=== PATIENT | female | born 1970 | race African-American/Black ===

== ENCOUNTER → 2025-03-15 | Outpatient (CLI) | payer BC | END | disposition home or self-care (01) | LOC: MAMMO 07:17 | PROVIDERS: ATTEND Internal Medicine | DX: Z12.31 Encounter for screening mammogram for malignant neoplasm of breast (principal); R92.333 Mammographic heterogeneous density, bilateral breasts; M79.641 Pain in right hand; R20.2 Paresthesia of skin | CPT/HCPCS: 73130; 77063; 77067 ==